=== PATIENT | male | born 1990 | race Two or more races ===

== ENCOUNTER 2016-06-22 12:34 | Emergency (ER) | payer OTHER, BC ==
--- NOTE | 2016-06-22 13:17 | RAD ---
HISTORY: Impact injury when 50-60 pound block fell and struck hand. Initial encounter. COMPARISON: None TECHNIQUE: Three views of the right hand FINDINGS: Bones: No fracture or dislocation. Joints: Unremarkable. Soft tissue: Normal. IMPRESSION: No fracture or dislocation.
[2016-06-22] MEDS ORDERED: DIPHTH,PERTUSS(ACELL),TET VAC 0.5 ML VIAL IM V ONE (14:04)
== END 2016-06-22 14:14 | disposition home or self-care (01) ==
LOC: ED 12:34
DX: S67.21XA Crushing injury of right hand, initial encounter (principal); Z23 Encounter for immunization; W20.8XXA Other cause of strike by thrown, projected or falling object, initial encounter; Y93.H3 Activity, building and construction; Y92.63 Factory as the place of occurrence of the external cause; Y99.0 Civilian activity done for income or pay